=== PATIENT | male | born 1985 | race Caucasian/White ===

== ENCOUNTER 2016-06-07 10:32 | Emergency (ER) | payer OTHER ==
[2016-06-07 10:44] VITALS: BP 134/67; PULSE 82; RESP 20; TEMP 99
[2016-06-07] MEDS ORDERED: HYDROcodone/APAP 10-325MG 1 EACH TAB PO ONE (11:29)
--- NOTE | 2016-06-07 12:11 | XR ---
Right ankle HISTORY: Trauma and pain 3 views of the right ankle There is soft tissue swelling present. Bone mineralization, joint spaces and alignment are maintained . IMPRESSION: No fracture or dislocation is evident.
[2016-06-07] MEDS ORDERED: HYDROcodone/APAP 5-325MG 1 EACH TAB PO STA (12:15)
--- NOTE | 2016-06-07 12:28 | ED ---
Lower Extremity Injury HPI - General Chief Complaint: Extremity Injury, Lower Stated Complaint: Fall Time Seen by Provider: 06/07/16 11:11 Source: patient Mode of arrival: wheelchair Limitations: no limitations - History of Present Illness Initial Comments: Patient complains of injury to the right ankle. He has no pain in the knee. He did not hit his head. He denies conscious. He has no neck injury. He has no belly or back pain. The pain in the ankle is worse with walking. The pain doesn't radiate anywhere. He took no pain medication prior to arrival. He has no pain in the foot. He has no numbness or tingling. - Related Data Home Medications Medication Instructions Recorded Confirmed No Known Home Medications [No 06/07/16 06/07/16 Known Home Medications] Allergies Allergy/AdvReac Type Severity Reaction Status Date / Time No Known Allergies Allergy Verified 06/07/16 11:52 Review of Systems ROS Statement: Those systems with pertinent positive or pertinent negative responses have been documented in the HPI. ROS Other: All systems not noted in ROS Statement are negative. Past Medical History Past Medical History: No Reported History History of Any Multi-Drug Resistant Organisms: None Reported Past Surgical History: No Surgical Hx Reported Past Psychological History: No Psychological Hx Reported Smoking Status: Current every day smoker Past Alcohol Use History: None Reported Past Drug Use History: Marijuana General Exam Limitations: no limitations Extremities exam: Present: tenderness Course Vital Signs 06/07/16 10:42 Temperature 99 F Pulse Rate 82 Respiratory 20 Rate Blood Pressure 134/67 O2 Sat by Pulse 100 Oximetry Medical Decision Making - Medical Decision Making Patient complains of injury to the right ankle. X-rays are negative for fracture or dislocation. Patient is placed in Haider wrap and given crutches to be nonweightbearing. He will follow-up with orthopedics as an outpatient. Disposition Clinical Impression: Ankle sprain and strain Disposition: HOME SELF-CARE Condition: Good Instructions: Ankle Sprain (ED) Referrals: Gail Carl DO [Primary Care Provider] - 1-2 days Joseph Jackson MD [Medical Doctor] - 1-2 days Time of Disposition: 12:28
--- NOTE | 2016-08-21 04:45 | ED ---
Medical Decision Making - Medical Decision Making Patient presented with complaint of ankle pain. Physical exam reveals normal vital signs. Head is normocephalic. Respiratory, patient in no respiratory distress. Cardiovascular, normal peripheral perfusion. Musculoskeletal, no deformities or areas of tenderness. Disposition Clinical Impression: Ankle sprain and strain Disposition: HOME SELF-CARE Condition: Good Instructions: Ankle Sprain (ED) Referrals: Gail Carl DO [Primary Care Provider] - 1-2 days Joseph Jackson MD [Medical Doctor] - 1-2 days
== END 2016-06-07 12:39 | disposition home or self-care (01) ==
LOC: EC 10:32
DX: S93.401A Sprain of unspecified ligament of right ankle, initial encounter (principal); F17.200 Nicotine dependence, unspecified, uncomplicated; W18.30XA Fall on same level, unspecified, initial encounter; Y93.39 Activity, other involving climbing, rappelling and jumping off
CPT/HCPCS: 99283